=== PATIENT | male | born 1945 | race Caucasian/White ===

== ENCOUNTER 2025-02-27 14:02 | Emergency (ER) | payer MEDICARE, BC, SELFPAY ==
[2025-02-27 14:11] VITALS: BP 169/88; PULSE 75; RESP 20; TEMP 36.4; O2SAT 96; BMI 28.1
[2025-02-27 14:35] VITALS: O2SAT 94
--- NOTE | 2025-02-27 14:36 | CRLHL7_ITS ---
For Patients: As a result of the Cures Act, medical imaging exams and procedure reports are released immediately into your electronic medical record. You may view this report before your referring provider. If you have questions, please contact your health care provider. INDICATION: Chest pain. TECHNIQUE: Chest 1 view. COMPARISON: Chest radiographs 07/17/2019. FINDINGS: Lines and Tubes: None. Lungs: No opacity or focal consolidation. Pleural Space: No pleural effusion or pneumothorax. Heart and mediastinum: Normal cardiomediastinal silhouette. Bones and soft tissues: No significant findings. Upper Abdomen: Normal. IMPRESSION: No acute cardiopulmonary abnormality. Dictated by Wang Sales MD @ 02/27/2025 3:00:18 PM (Electronically Signed)
--- NOTE | 2025-02-27 14:37 | ED.GENADULT ---
HPI - General Adult General Chief complaint: Chest Pain Stated complaint: Chest discomfort Time Seen by Provider: 02/27/25 14:04 History of Present Illness HPI narrative: He 1-year-old male who has had no history of heart disease, presents after her about 3 weeks ago having an episode of dizziness when he is reading. Since then he has had some intermittent light chest tightness he describes no marked dizziness. No radiation to his neck jaw or arm. He has no feeling of palpitations. Patient has had no history of arrhythmia. Denies any specific chronic medical issues he is on chlorthalidone and potassium. He had a recent physical that was unremarkable he had a chemical stress test about 6 years ago that was normal. Does not feel like he has had any rhythm issues. He has had no leg swelling, edema, bleeding or clotting problems, or recent travel. He actually works out lifting weights 4 to 5 times a week and has had no symptoms when doing that. Related Data Home Medications ?Medication ?Instructions ?Recorded ?Confirmed chlorthalidone 25 mg tablet 25 mg PO QAM 02/27/25 02/27/25 potassium chloride 20 mEq 20 meq PO DAILY 02/27/25 02/27/25 tablet,extended release Allergies Allergy/AdvReac Type Severity Reaction Status Date / Time [id number] Reductase Allergy Mild Muscle Pain Verified 02/27/25 14:09 Inhibitor Review of Systems Status of ROS: Reports: 6 or more systems reviewed and unremarkable except as noted in History and below [facility] Social History Smoking Status: Never smoker Second hand tobacco smoke exposure: No How often do you have a drink containing alcohol: never How often do you have six or more drinks on one occasion: Never AUDIT-C Alcohol total score: 0 Non-prescribed substance use: denies use service: No Exam Narrative: Exam Narrative: Objective: Patient's blood pressure is elevated 169 systolic and he is afebrile, with an O2 sat is excellent at 96%. In general patient in no apparent distress, noncyanotic, talks in even unlabored sentences. Has really no symptoms at present. Alert orient times 3 HEENT shows no facial asymmetry neck is supple chest is clear heart rhythm without murmur abdomen benign extremities show good strength no focal neurologic findings , no swelling his lower extremities. Const: Vital Signs, click to edit/add: Vital Signs - 24 hr 02/27/25 14:11 02/27/25 14:35 Temperature 97.5 F L Pulse Rate [Pulse Oximeter] 75 Respiratory Rate 20 Blood Pressure [Ri ght Upper Arm] 169/88 H Pulse Oximetry 96 94 Oxygen Delivery Me thod Room Air Course Vital Signs Vital signs: Initial Vital Signs Temperature 97.5 F L 02/27/25 14:11 Temperature Source Temporal Artery Scan 02/27/25 14:11 Pulse Rate 75 02/27/25 14:11 Respiratory Rate 20 02/27/25 14:11 Blood Pressure 169/88 H 02/27/25 14:11 Blood Pressure Mean 115 H 02/27/25 14:11 Pulse Oximetry 96 02/27/25 14:11 Oxygen Delivery Method Room Air 02/27/25 14:11 Vital Signs Temperature 97.5 F L 02/27/25 14:11 Pulse Rate 75 02/27/25 14:11 Respiratory Rate 20 02/27/25 14:11 Blood Pressure 169/88 H 02/27/25 14:11 Pulse Oximetry 96 02/27/25 14:11 Oxygen Delivery Method Room Air 02/27/25 14:11 Temperature 97.5 F L 02/27/25 14:11 Pulse Rate 75 02/27/25 14:11 Respiratory Rate 20 02/27/25 14:11 Blood Pressure 169/88 H 02/27/25 14:11 Pulse Oximetry 94 02/27/25 14:35 Oxygen Delivery Method Room Air 02/27/25 14:11 Medications Administered Medications: Discontinued Medications Generic Name Dose Route Start Last Admin Trade Name Edilbertoq PRN Reason Stop Dose Admin Aspirin 324 mg 02/27/25 14:35 02/27/25 15:14 Aspirin 81 Mg Tab.Chew PO 02/27/25 14:36 324 mg ONCE ONE Administration Medical Decision Making [facility] Narrative Medical decision making narrative: 79-year-old white male who is quite healthy with episode of dizziness followed by a some mild intermittent chest tightness. Does not seem to be worse with activity or weightlifting. His EKG by my in into independent interpretation shows normal sinus rhythm with sinus arrhythmia, no acute ST T wave changes. I think could be appropriate to put him on a hair colorist, oximeter, get a troponin for a cardiac workup, get electrolytes and labs. Will get a CRP. Will give the patient aspirin 324. His symptoms are pretty atypical for acute coronary syndrome but I do think pursuing perhaps a ZIO patch for rhythm observation as well as a adenosine Myoview study might be very helpful to discern and make sure he does not have coronary artery disease. He does have some family history of this, he is a nonsmoker. Disposition pending findings and labs and x-ray. Addendum 3:43 p.m.: The patient's EKG by my independent review shows normal sinus rhythm with sinus arrhythmia no acute ST T wave changes. His troponin is 0. His white count is normal hemoglobin normal, ER profile pending. If this is reassuring I think we can allow him to go home rest light activity, aspirin daily, he has been set up for a Lexiscan, and would have him return if it changes or concerns as mention stressed the importance of not working out until he gets his Lexiscan done. I think also would be reasonable to put him on a ZIO Patch is given the dizziness he had and make sure he does not have and rhythm issue. He has were comfortable plan Lab Data Labs: Lab Results 02/27/25 02/27/25 Range/Units 14:36 15:04 WBC 5.51 (4.50-11.00) K/uL RBC 4.95 (4.30-5.90) m/uL Hgb 16.2 (13.5-17.5) gm/dL Hct 44.2 (37.0-53.0) % MCV 89 (80-100) fL MCH 33 (26-34) pg MCHC 37 H (32-36) gm/dL RDW Coeff of Ignacia 12.0 (11.5-15.5) % Plt Count 253 (140-440) K/uL Neut % (Auto) 60.8 (42.0-72.0) % Lymph % (Auto) 28.1 (20-44) % Jones % (Auto) 8.2 (0.0-11.0) % Eos % (Auto) 2.2 (0.0-7.0) % Baso % (Auto) 0.5 (0.0-3.0) % Neut # (Auto) 3.35 (1.7-7.0) K/uL Lymph # (Auto) 1.55 (0.90-2.90) K/uL Jones # (Auto) 0.50 (0.00-0.90) K/UL Eos # (Auto) 0.12 (0.00-0.50) K/uL Baso # (Auto) 0.03 (0.00-0.30) K/uL Abs Immat Gran (auto) 0.01 (0.00-0.30) K/uL Imm/Tot Granulo (auto) 0.2 % Sodium 138 (135-149) mmol/L Potassium 3.8 (3.6-5.1) mmol/L Chloride 98 (96-114) mmol/L Carbon Dioxide 29 (20-32) mmol/L Anion Gap 11 (7-15) mEq/L BUN 16 (7-30) mg/dL Creatinine 0.8 (0.5-1.5) mg/dL Estimated Creat Clear 57.93 Estimated GFR 89 ml/min Glucose 109 (60-115) mg/dL Calcium 9.4 (8.4-10.6) mg/dL C-Reactive Protein < 0.5 L (0.5-1.0) mg/dL POC Troponin I 0.00 L (0.01-0.04) ng/ml Discharge Plan Discharge Clinical Impression: Atypical chest pain Patient Disposition: Home w/ Parent or Adult Condition: Stable Additional Instructions: Recommends out patch, recommended adenosine Myoview study be set up as an outpatient. Recommend aspirin daily 324. Recommend light activity, until stress test, no workout. Return to the ED if there is persistent symptoms or changes. Stress Test is scheduled on 03/05 with an 8:15am arrival time. Please enter through the front entrance of the [facility]. If you have any questions, please call [phone]. Activity Level: Light activity Discharge Diet: Low Fat/Low Cholesterol Prescriptions: No Action chlorthalidone 25 mg tablet 25 mg PO QAM potassium chloride 20 mEq tablet extended release 20 meq PO DAILY Follow Up/Referrals: Anastacio Lucero MD [Primary Care Provider, Family Practice] Stand Alone Forms: My[facility] Info Instructions
[2025-02-27] MEDS: ASPIRIN 81 MG TAB.CHEW 324 MG PO (15:14)
[2025-02-27 15:24] LABS: Hematocrit* 44.2 % (37.0-53.0); Hemoglobin* 16.2 gm/dL (13.5-17.5); Immature Granulocytes Abs Auto 0.01 K/uL (0.00-0.30); Immature Granulocytes Pct Auto 0.2 %; Lymphocytes Absolute Auto 1.55 K/uL (0.90-2.90); Mean Corpuscular HGB Conc 37 gm/dL (32-36); Mean Corpuscular Hemoglobin 33 pg (26-34); Mean Corpuscular Volume 89 fL (80-100); RDW Coefficient of Variation % 12.0 % (11.5-15.5); Red Blood Count* 4.95 m/uL (4.30-5.90); White Blood Count* 5.51 K/uL (4.50-11.00)
[2025-02-27 15:29] LABS: Slide Review Reflex No
[2025-02-27 15:34] LABS: Troponin, Point-of-Care* 0.00 ng/ml (0.01-0.04)
[2025-02-27 15:43] LABS: Chloride* 98 mmol/L (96-114); Potassium* 3.8 mmol/L (3.6-5.1); Sodium* 138 mmol/L (135-149)
[2025-02-27 15:47] LABS: Anion Gap 11 mEq/L (7-15); Blood Urea Nitrogen* 16 mg/dL (7-30); Calcium* 9.4 mg/dL (8.4-10.6); Carbon Dioxide* 29 mmol/L (20-32); Creatinine* 0.8 mg/dL (0.5-1.5); Est. Creatinine Clearance* 57.93; Estimated Glomerular Filt Rate 89 ml/min; Glucose* 109 mg/dL (60-115)
[2025-02-27 15:57] LABS: NT Pro B Type NatriureticPept* 103 pg/mL (See Note)
== END 2025-02-27 16:25 | disposition home or self-care (01) ==
PROVIDERS: Emergency Provider Family Medicine; PCP Family Medicine
DX: R07.9 Chest pain, unspecified (principal)
CPT/HCPCS: 36415; 71045; 80048; 83880; 84484; 85025; 86140; 93005; 93246; 94761; 99284; 99285; A9270

== ENCOUNTER 2025-03-05 08:03 | Outpatient (CLI) | payer MEDICARE, BC, SELFPAY ==
[2025-03-05] MEDS: REGADENOSON 0.4 MG/5 ML SYRINGE IVP (10:25)
[2025-03-05] MEDS: SODIUM CHLORIDE 0.9 % (FLUSH) 10 ML SYRINGE IVF (10:25)
[2025-03-05 10:35] VITALS: BP 195/96; PULSE 87; RESP 16
--- NOTE | 2025-03-05 10:42 | W.PM.STED ---
Stress Test Note Date Date Seen: 03/05/25 Date of test: 03/05/25 Providers Referring provider: Dwayne Simpson Primary care provider: Anastacio Lucero Stress test physician: Sarita Bose Stress Test Note Stress test ordered: Lexiscan Indication for test: Chest discomfort Stress test medicine: Lexiscan Results discussion: Resting EKG: Sinus rhythm, 71 beats per minute. Resting blood pressure: 182/85 Stress test: Patient is consented on ordered stress test of Lexiscan. He did undergo a walking Lexiscan. Patient did complete the protocol, had no symptoms of chest discomfort shortness of breath, really was asymptomatic during this test. Patient completed the 5 minutes walking without any symptoms. He did have inferior and lateral precordial (V3 through V6) flipping of his T-waves and nondiagnostic downsloping ST depression. He did not meet [address] segment depression but overall the pattern is concerning for coronary ischemia. He did exhibit hypertension. He had no arrhythmia. He had no symptoms. Patient will have post stress nuclear images obtained. Await nuclear images to couple this for a full formal diagnostic. Impression: Subjectively negative, objectively positive EKG portion of this Lexiscan. Follow up suggested: It was reviewed with patient that I do see EKG changes but he was asymptomatic during the test. We will await the nuclear images to couple this for a full formal diagnostic. We did discuss if the nuclear testing is negative, the EKG very well likely represents a false positive. He was advised at the time in the ER to minimize activity, will continue with that plan and tell he has the final results of this test. He did ask what would happen if the test is positive and reviewed with him that he would need to see Cardiology. The ordnance engineering technician would ultimately make the decision but I could see where they might consider CT angiogram verses coronary angiography. Patient did exhibit hypertension as well, warrants further following in the outpatient sector for further management.
== END 2025-03-05 10:37 | disposition home or self-care (01) ==
LOC: STRESS 08:03
PROVIDERS: PCP Family Medicine; Visit Provider Family Medicine
DX: R07.9 Chest pain, unspecified (principal); R42 Dizziness and giddiness
CPT/HCPCS: 78452; 93016; 93017; A9500; J2785